=== PATIENT | female | born 1975 | race Caucasian/White ===

== ENCOUNTER 2024-12-11 02:38 | Inpatient (IN) | payer BC ==
[~2024-12-11] VITALS: Ht 165.1 cm; Wt 71.9 kg
[2024-12-11] MEDS ORDERED: Ketorolac Tromethamine 30mg Vial IV ONE (03:00)
[2024-12-11] MEDS ORDERED: Ondansetron HCl 2 MG / ML 2ML Vial IV ONE (03:00)
[2024-12-11] MEDS ORDERED: NS 1,000 ML IV SCH (03:00)
[2024-12-11] MEDS ORDERED: FentaNYL Citrate 50 MCG/ML 2 ML Injection IV ONE (03:15)
[2024-12-11 03:16] LABS: BASOPHILS ABSOLUTE AUTO 0.08 K/mm3 (0.00-0.23); BASOPHILS PERCENT AUTO 1 % (0-2); EOSINOPHILS ABSOLUTE AUTO 0.02 K/mm3 (0.00-0.68); EOSINOPHILS PERCENT AUTO 0 % (0-6); Hematocrit 37.7 % (33.0-51.0); Hemoglobin 13.1 g/dL (11.5-16.0); IMMATURE GRAN ABSOLUTE AUTO 0.07 K/mm3 (0.00-0.10); IMMATURE GRAN PERCENT AUTO 1 % (0-1); LYMPHOCYTES ABSOLUTE AUTO 0.85 K/mm3 (0.84-5.20); LYMPHOCYTES PERCENT AUTO 6 % (21-46); MONOCYTES ABSOLUTE AUTO 1.33 K/mm3 (0.16-1.47); MONOCYTES PERCENT AUTO 10 % (4-13); Mean Corpuscular HGB 30.1 pg (26.0-34.0); Mean Corpuscular HGB Conc 34.7 g/dL (31.5-36.5); Mean Corpuscular Volume 87 fL (80-100); NEUTROPHILS ABSOLUTE AUTO 11.51 K/mm3 (1.96-9.15); NEUTROPHILS PERCENT AUTO 83 % (41-73); NRBC ABSOLUTE 0.02 K/mm3 (0.00-0.02); NRBC Auto 0.1 /100 WBC (0.0-0.2); RDW Coefficient Variation 11.6 % (11.7-14.2); RDW Standard Deviation 37.2 fL (35.1-46.3); Red Blood Cell Count 4.35 M/mm3 (3.80-5.20); White Blood Cell Count 13.86 K/mm3 (4.00-11.30)
[2024-12-11 03:17] LABS: Mean Platelet Volume 10.9 fL (9.1-12.4); Platelet Count 271 K/mm3 (150-400)
[2024-12-11 03:34] LABS: Albumin, Blood 3.4 g/dL (3.4-5.0); Albumin/Globulin Ratio 0.9 (0.8-1.8); Bilirubin, Total 0.5 mg/dL (0.1-1.0); Bun/Creatinine Ratio 22.6 (12.0-20.0); Creatinine, Blood 0.8 mg/dL (0.40-1.00); Globulin, Blood 3.8 g/dL (2.2-4.0); Potassium, Blood 4.3 mmol/L (3.5-5.5); Total Protein, Blood 7.2 g/dL (6.4-8.2)
[2024-12-11 03:39] LABS: Source, Urine Clean Catch
[2024-12-11 03:48] LABS: Bilirubin, Urine Neg (Neg); Blood, Urine 5+ (Neg); Glucose Qualitative, Urine Neg (Neg); Ketones, Urine 3+ (Neg); Leukocyte Esterase, Urine 3+ (Neg); Nitrite, Urine Neg (Neg); Protein, Urine 2+ (Neg); Urobilinogen, Urine NORM (Normal)
[2024-12-11] MEDS ORDERED: Morphine Sulfate 4 MG/1 ML Injection IV ONE ×2 (04:35→08:20)
[2024-12-11 04:39] LABS: Appearance, Urine Hazy (Clear); Bacteria Mod /hpf; Color, Urine Yellow (P-Yellow); Squamous Epithelial Cells Not Seen /hpf (Few); White Blood Cells, Urine TNTC /hpf (0-5)
[2024-12-11] MEDS ORDERED: CefTRIAXone Sodium 1,000 MG in NS 50 ML IV ONE (04:55)
[2024-12-11] MEDS ORDERED: Ondansetron 4 MG TAB PO PRN (05:30)
[2024-12-11] MEDS ORDERED: FLU VACC TS2024-25(6MOS UP)/PF 45 MCG/0.5 ML SYRINGE IM ONE (05:30)
[2024-12-11] MEDS ORDERED: Magnesium Hydroxide Conc 10 ML UDC PO PRN (05:30)
[2024-12-11] MEDS ORDERED: CefTRIAXone Sodium 1,000 MG in NS 100 ML IV SCH (06:09)
[2024-12-11] MEDS ORDERED: LORazepam 2 MG/ML 1ML Injection IV PRN (06:10)
[2024-12-11] MEDS ORDERED: Sennosides 8.6 MG Tab PO SCH (09:00)
[2024-12-11] MEDS ORDERED: Lactobacil 2-S.Thermo-Bifido 1 1 Cap PO SCH (09:00)
[2024-12-11] MEDS ORDERED: Morphine Sulfate 4 MG/1 ML Injection IV PRN (10:20)
[2024-12-11] MEDS ORDERED: TraZODone HCl 100 MG Tab PO PRN (10:20)
[2024-12-11] MEDS ORDERED: Sertraline HCl 50 MG Tab PO SCH (11:00)
[2024-12-11] MEDS ORDERED: ARIPiprazole 5 MG Tab PO SCH (11:00)
[2024-12-11] MEDS ORDERED: DULoxetine HCL 30 MG Cap DR PO SCH (11:00)
[2024-12-11] MEDS ORDERED: Acetaminophen 325 MG TABLET PO PRN (11:25)
[2024-12-11 15:31] VITALS: BP 99/64
[2024-12-11] MEDS ORDERED: HYDHCL25 PO (15:36)
[2024-12-11] MEDS ORDERED: ONDA4ODT MM (15:37)
[2024-12-11] MEDS ORDERED: Nicoderm Cq1 EACH TOP (15:37)
[2024-12-11] MEDS ORDERED: ABILIFY MYCITE5 M2 PO (15:38)
[2024-12-11] MEDS ORDERED: Inderal40 MG PO (15:38)
[2024-12-11] MEDS ORDERED: SERT50 PO (15:38)
[2024-12-11] MEDS ORDERED: DULO30 PO (15:40)
[2024-12-11] MEDS ORDERED: TRAZ100 PO (15:40)
[2024-12-11] MEDS ORDERED: MULTI-VITAMIN1 EAC2 PO (15:41)
[2024-12-11 20:01] VITALS: BP 105/64
[2024-12-12 03:23] VITALS: BP 120/64
--- NOTE | 2024-12-12 05:32 | NUR ---
SHIFT SUMMARY 49 YR F ADMITTED ON 12/11/24. FULL CODE. PT C/O LEFT FLANK PAIN AND MEDICATED PER EMAR. SHE IS A&O X 4 AND INDEPENDANT IN THE ROOM. SHE IS PLEASANT AND COOPERATIVE WITH CARE. HX OF EPILEPSY BUT NO S/S OF SEIZURE ACTIVITY THIS SHIFT. BED IN LOW POSITION AND CALL LIGHT IN REACH.
[2024-12-12 05:49] LABS: BASOPHILS ABSOLUTE AUTO 0.06 K/mm3 (0.00-0.23); BASOPHILS PERCENT AUTO 1 % (0-2); EOSINOPHILS ABSOLUTE AUTO 0.15 K/mm3 (0.00-0.68); EOSINOPHILS PERCENT AUTO 1 % (0-6); Hematocrit 30.4 % (33.0-51.0); Hemoglobin 10.4 g/dL (11.5-16.0); IMMATURE GRAN ABSOLUTE AUTO 0.03 K/mm3 (0.00-0.10); IMMATURE GRAN PERCENT AUTO 0 % (0-1); LYMPHOCYTES ABSOLUTE AUTO 1.14 K/mm3 (0.84-5.20); LYMPHOCYTES PERCENT AUTO 11 % (21-46); MONOCYTES ABSOLUTE AUTO 1.26 K/mm3 (0.16-1.47); MONOCYTES PERCENT AUTO 12 % (4-13); Mean Corpuscular HGB 30.2 pg (26.0-34.0); Mean Corpuscular HGB Conc 34.2 g/dL (31.5-36.5); Mean Corpuscular Volume 88 fL (80-100); Mean Platelet Volume 11.2 fL (9.1-12.4); NEUTROPHILS ABSOLUTE AUTO 8.06 K/mm3 (1.96-9.15); NEUTROPHILS PERCENT AUTO 75 % (41-73); Platelet Count 183 K/mm3 (150-400); RDW Standard Deviation 38.4 fL (35.1-46.3); Red Blood Cell Count 3.44 M/mm3 (3.80-5.20)
[2024-12-12] MEDS ORDERED: CefTRIAXone Sodium 1,000 MG in NS 100 ML IV SCH (06:00)
[2024-12-12 06:17] LABS: Bun/Creatinine Ratio 22.3 (12.0-20.0); Calcium, Blood 8.4 mg/dL (8.5-10.1); Creatinine, Blood 0.63 mg/dL (0.40-1.00); Potassium, Blood 4.2 mmol/L (3.5-5.5)
[2024-12-12 07:28] VITALS: BP 97/54
[2024-12-12] MEDS ORDERED: Enoxaparin 40 MG/0.4 ML SYR SC SCH (09:00)
[2024-12-12] MEDS ORDERED: HyDROXyzine HCl 25 MG Tab PO SCH (09:00)
[2024-12-12] MEDS ORDERED: Ketorolac Tromethamine 30mg Vial IV PRN (11:55)
[2024-12-12] MEDS ORDERED: Nicotine 7 MG PATCH TOP SCH (12:05)
[2024-12-12] MEDS ORDERED: Propranolol HCL 20 MG TAB PO SCH (14:00)
[2024-12-12] MEDS ORDERED: SUMAtriptan Succinate 25 MG Tab PO ONE (14:00)
[2024-12-12 15:48] VITALS: BP 94/60
--- NOTE | 2024-12-12 16:38 | NUR ---
PATIENT A/OX4, UP INDEPENDENTLY IN ROOM. MORPHINE AND TORADOL GIVEN TO TREAT ABDOMINAL PAIN AND IMITREX GIVEN TO TREAT HEADACHE WITH STATED RELIEF. 20G IV TO R FA WNL AND SL. PATIENT PLEASANT AND COOPERATIVE WITH CARE AND ABLE TO MAKE NEEDS KNOWN. NO NEW CONCERNS THIS SHIFT.
[2024-12-12 19:45] VITALS: BP 98/59
[2024-12-13 03:32] VITALS: BP 102/68
--- NOTE | 2024-12-13 06:06 | NUR ---
SHIFT SUMMARY ADMITTED FOR L. PYELEONEPHRITIS/SEPSIS. FULL CODE. PLAN IS FOR PAIN MANAGEMENT AND ANTIB RX. REGULAR DIET. INDEPENDENT. A&O X4. SHE HAD A VERY GOOD NIGHT. SHE STATES SHE IS FEELING MUCH BETTER. FREQUENTLY SHE STATED SHE HAD NO PAIN AT ALL AND WAS FEELING FANTASTIC.
[2024-12-13] MEDS ORDERED: PROP10 PO (12:22)
[2024-12-13] MEDS ORDERED: VISBIOME 112.51 EACH PO (12:23)
[2024-12-13] MEDS ORDERED: CEPH500 PO (12:23)
[2024-12-13] MEDS ORDERED: IBUP400 PO (12:25)
[2024-12-13] MEDS ORDERED: Acetaminophen650 M1 PO (12:27)
--- NOTE | 2024-12-13 16:04 | NUR ---
1300 DISCHARGED HOME, INSTRUCTIONS GIVEN TO PATIENT, STATED UNDERSTANDING OF MEDICATIONS, FOLLOW UP, MEDICATIONS. DENIED FURTHER QUESTIONS, PLEASANT TO CARE
== END 2024-12-13 13:14 | disposition home or self-care (01) | DRG 872 ==
LOC: ER 02:38 → MEDS 05:26 → ERHOLD 05:26 → MEDS 15:23 → ENPENDDIS 12-13 13:01 → MEDS 12-13 13:14
PROVIDERS: Family Medicine; Student in an Organized Health Care Education/Training Program; ADMIT Student in an Organized Health Care Education/Training Program
DX: A41.51 Sepsis due to Escherichia coli [E. coli] (principal); N12 Tubulo-interstitial nephritis, not specified as acute or chronic; K56.7 Ileus, unspecified; E87.1 Hypo-osmolality and hyponatremia; F41.8 Other specified anxiety disorders; G40.909 Epilepsy, unspecified, not intractable, without status epilepticus; G43.909 Migraine, unspecified, not intractable, without status migrainosus; N28.89 Other specified disorders of kidney and ureter; K52.9 Noninfective gastroenteritis and colitis, unspecified; F17.290 Nicotine dependence, other tobacco product, uncomplicated; Z78.1 Physical restraint status; Z91.040 Latex allergy status; Z88.5 Allergy status to narcotic agent
CPT/HCPCS: 36416; 74177; 80048; 80053; 81001; 82947; 83605; 83690; 85025; 87040; 87077; 87086; 87186; 96361; 96365-59; 96375; 99285-25; A9270; J0696; J1650; J1885; J2270; J2405; J3010; J7030; Q9967

== ENCOUNTER 2025-08-06 12:23 | Emergency (ER) | payer BC ==
[~2025-08-06] VITALS: Ht 165.1 cm; Wt 72.6 kg
[~2025-08-06 12:23] MED LIST: ABILIFY MYCITE5 M2 PO; Acetaminophen650 M1 PO; CEPH500 PO; DULO30 PO; HYDHCL25 PO; IBUP400 PO; Inderal40 MG PO; MULTI-VITAMIN1 EAC2 PO; Nicoderm Cq1 EACH TOP; ONDA4ODT MM; PROP10 PO; SERT50 PO; TRAZ100 PO; VISBIOME 112.51 EACH PO
[2025-08-06 13:21] LABS: BASOPHILS ABSOLUTE AUTO 0.07 K/mm3 (0.00-0.23); BASOPHILS PERCENT AUTO 1 % (0-2); EOSINOPHILS ABSOLUTE AUTO 0.12 K/mm3 (0.00-0.68); EOSINOPHILS PERCENT AUTO 2 % (0-6); Hematocrit 39.1 % (33.0-51.0); Hemoglobin 13.3 g/dL (11.5-16.0); IMMATURE GRAN ABSOLUTE AUTO 0.02 K/mm3 (0.00-0.10); IMMATURE GRAN PERCENT AUTO 0 % (0-1); LYMPHOCYTES ABSOLUTE AUTO 2.23 K/mm3 (0.84-5.20); LYMPHOCYTES PERCENT AUTO 29 % (21-46); MONOCYTES ABSOLUTE AUTO 0.70 K/mm3 (0.16-1.47); MONOCYTES PERCENT AUTO 9 % (4-13); Mean Corpuscular HGB Conc 34.0 g/dL (31.5-36.5); Mean Corpuscular Volume 89 fL (80-100); NEUTROPHILS ABSOLUTE AUTO 4.50 K/mm3 (1.96-9.15); NEUTROPHILS PERCENT AUTO 59 % (41-73); NRBC ABSOLUTE 0.00 K/mm3 (0.00-0.02); NRBC Auto 0.0 /100 WBC (0.0-0.2); Platelet Count 337 K/mm3 (150-400); RDW Coefficient Variation 11.9 % (11.7-14.2); RDW Standard Deviation 38.3 fL (35.1-46.3)
[2025-08-06 13:55] LABS: Alanine Aminotransfer (ALT/SGP 26.0 U/L (12-78); Albumin, Blood 4.0 g/dL (3.4-5.0); Albumin/Globulin Ratio 1.4 (0.8-1.8); Anion Gap 6.0 mmol/L (3-11); Aspartate Aminotrans (AST/SGOT 25.0 U/L (12-37); Bilirubin, Total 0.3 mg/dL (0.1-1.0); Blood Urea Nitrogen 17.0 mg/dL (8-24); CO2, Blood 29.0 mmol/L (21-32); Calcium, Blood 9.5 mg/dL (8.5-10.1); Chloride, Blood 108.0 mmol/L (98-108); Creatinine, Blood 0.8 mg/dL (0.40-1.00); Globulin, Blood 2.9 g/dL (2.2-4.0); Glucose, Blood 88.0 mg/dL (70-99); Potassium, Blood 3.6 mmol/L (3.5-5.5); Sodium, Blood 139.0 mmol/L (136-145); Total Protein, Blood 6.9 g/dL (6.4-8.2)
[2025-08-06] MEDS ORDERED: HYDPAM50 PO (17:52)
== END 2025-08-06 18:00 | disposition home or self-care (01) ==
LOC: ER 12:23
PROVIDERS: Physician Assistant
DX: R07.89 Other chest pain (principal); R20.2 Paresthesia of skin; M79.672 Pain in left foot; M79.671 Pain in right foot; R25.1 Tremor, unspecified; F17.200 Nicotine dependence, unspecified, uncomplicated; Z88.5 Allergy status to narcotic agent; Z91.041 Radiographic dye allergy status; Z79.899 Other long term (current) drug therapy
CPT/HCPCS: 71046; 80053; 83690; 84443; 84484; 85025; 93005; 93010; 99285-25; A9270